=== PATIENT | female | born 1975 ===

== ENCOUNTER 2018-10-02 04:53 | Observation (INO) | payer OTHER ==
[~2018-10-02] VITALS: Ht 160 cm; Wt 104.3 kg
[2018-10-02 05:48] LABS: BASOPHILS ABSOLUTE AUTO 0.02 K/mm3 (0.00-0.23); BASOPHILS PERCENT AUTO 0 % (0-2); EOSINOPHILS ABSOLUTE AUTO 0.18 K/mm3 (0.00-0.68); EOSINOPHILS PERCENT AUTO 2 % (0-6); Hematocrit 40.1 % (33.0-51.0); Hemoglobin 13.1 g/dL (11.5-16.0); IMMATURE GRAN ABSOLUTE AUTO 0.02 K/mm3 (0.00-0.10); IMMATURE GRAN PERCENT AUTO 0 % (0-1); LYMPHOCYTES ABSOLUTE AUTO 2.87 K/mm3 (0.84-5.20); LYMPHOCYTES PERCENT AUTO 34 % (21-46); MONOCYTES ABSOLUTE AUTO 0.56 K/mm3 (0.16-1.47); MONOCYTES PERCENT AUTO 7 % (4-13); Mean Corpuscular HGB 29.8 pg (26.0-34.0); Mean Corpuscular HGB Conc 32.7 g/dL (31.5-36.5); Mean Corpuscular Volume 91 fL (80-100); Mean Platelet Volume 10.5 fL (9.1-12.4); NEUTROPHILS ABSOLUTE AUTO 4.77 K/mm3 (1.96-9.15); NEUTROPHILS PERCENT AUTO 57 % (41-73); Platelet Count 262 K/mm3 (150-400); RDW Coefficient Variation 12.8 % (11.7-14.2); RDW Standard Deviation 42.8 fL (35.1-46.3); Source, Urine Clean Catch; White Blood Cell Count 8.42 K/mm3 (4.00-11.30)
[2018-10-02 05:58] LABS: Bilirubin, Urine Neg (Neg); Blood, Urine 1+ (Neg); Glucose Qualitative, Urine Neg (Neg); Ketones, Urine 1+ (Neg); Leukocyte Esterase, Urine 1+ (Neg); Nitrite, Urine Neg (Neg); Protein, Urine 1+ (Neg); Specific Gravity, Urine 1.025 (1.003-1.022); Urobilinogen, Urine NORM (Normal)
[2018-10-02 06:07] LABS: Alanine Aminotransfer (ALT/SGP 51 U/L (12-78); Albumin, Blood 3.8 g/dL (3.4-5.0); Alk Phos 95 U/L (50-136); Anion Gap 6 mmol/L (6-16); Aspartate Aminotrans (AST/SGOT 22 U/L (12-37); Bilirubin, Total 0.3 mg/dL (0.1-1.0); Blood Urea Nitrogen 13 mg/dL (8-24); Bun/Creatinine Ratio 20.6 (12.0-20.0); CO2, Blood 26 mmol/L (21-32); Calcium, Blood 8.5 mg/dL (8.5-10.1); Chloride, Blood 108 mmol/L (98-108); Creatinine, Blood 0.63 mg/dL (0.40-1.00); Globulin, Blood 3.9 g/dL (2.2-4.0); Glomerular Filtration Rate >60 (60-); Glucose, Blood 119 mg/dL (70-99); Potassium, Blood 3.8 mmol/L (3.5-5.5); Sodium, Blood 140 mmol/L (136-145); Total Protein, Blood 7.7 g/dL (6.4-8.2)
[2018-10-02 06:18] LABS: Appearance, Urine Hazy (Clear); Color, Urine Yellow (P-Yellow)
[2018-10-02 06:20] LABS: Red Blood Cells, Urine 0-2 /hpf (0-2)
[2018-10-02 06:21] LABS: Bacteria Many /hpf; Squamous Epithelial Cells Mod /hpf (Few)
--- NOTE | 2018-10-02 09:15 | NUR ---
REPORT RECEIVED FROM FRANSISCA FOSTER IN ER.
--- NOTE | 2018-10-02 09:24 | NUR ---
PT ARRIVES TO UNIT VIA WC FROM ER. PT ALERT AND ORIENTED. INDEPENDENT IN ROOM. PT CONSENTED TO SURGERY BY DR AN IN THE ER. PT DENIES QUESTIONS CURRENTLY. PT UP TO RR. STATES PAIN 5/10. PT STATES ABD PAIN AND NAUSEA STARTED THIS AM AT 0300 AND WOKE HER. PT HAS PATENT 20G TO RIGHT AC. DENIES CURRENT NAUSEA.
--- NOTE | 2018-10-02 09:41 | NUR ---
OR STAFF TO ROOM,
--- NOTE | 2018-10-02 09:44 | NUR ---
PT TO DAYSURGERY WITH RN.
--- NOTE | 2018-10-02 09:58 | NUR ---
FROM SURGICAL FLOOR TO [facility] ADMISSION TO UNIT STARTED. Lungs clear T/O to Auscultation. History, Chart, Medications and Allergies reviewed before start of procedure.Patient confirms NPO status and agrees with scheduled surgery.
--- NOTE | 2018-10-02 14:06 | NUR ---
PT ARRIVED TO ROOM FROM PACU. DROWSY BUT ANSWERS QUESTIONS APPROPRIATELY. DENIES PAIN, NAUSEA OR SOB AT THIS TIME. GAUZE W/TEGADERM TO LAP INCISIONS TO ABDX4. VSS. CALL LIGHT IN REACH.
--- NOTE | 2018-10-02 19:13 | NUR ---
SUMMARY PT S/P LAP LELA THIS SHIFT. MEDICATED W/1 TAB NORCO PER ORDERS FOR 08/20 ABD PAIN. PT AMBULATED TO RESTROOM. TOLERATING PO INTAKE. DENIES NAUSEA OR SOB. VSS. CALL LIGHT IN REACH. PT PLEASANT AND COOPERATIVE.
--- NOTE | 2018-10-03 04:15 | NUR ---
SHIFT SUMMARY: PT POD #1 FOR LAP LELA. GAUZE SITES CDI T/O SHIFT. PAIN MANAGED WITH 5MG OXY. PT DENIES PASSING FLATUS. JAVI REG DIET. DENIES N/V. PT OOB TO BATHROOM PRN WITH SBA. VOIDING WELL. AT BEDSIDE. NO CONCERNS AT THIS TIME. CALL LIGHT IN REACH.
--- NOTE | 2018-10-03 05:25 | NUR ---
PATIENT BACK TO BED AFTER USING RESTROOM. RN NOTIFIED OF SOME BLEEDING AT SURGICAL SITE THAT PATIENT NOTICIED. CALL LIGHT IN REACH.
[2018-10-03] MEDS ORDERED: HYDR1TAB94 PO (07:34)
[2018-10-03] MEDS ORDERED: ONDA4ODT SL (07:35)
--- NOTE | 2018-10-03 11:22 | NUR ---
SHIFT SUMMARY PT A&OX4, VSS, LEFT FLOOR VIA WC WITH ESCORT TO GO HOME WITH , WITH ALL PERSONAL POSSESSIONS INCLUDING DISCHARGE PACKET AND 1 NARC AND 1 ZOFRAN SCRIPT. DISCHARGE INSTRUCTIONS PROVIDED. PT REP UNDERSTANDING THOSE INSTRUCTIONS INCLUDING FU WITH [facility] 2 WKS, PCP 1 WK, LEAVE STERIS IN PLACE 7-10, OK TO SHOWER TOMORROW, NO JACUZZI/TUB BATHS. IV DC'D.
== END 2018-10-03 10:10 | disposition home or self-care (01) ==
LOC: ER 04:53 → SURS 04:54
PROVIDERS: Emergency Medicine; ADMIT Surgery
PROC: BF13YZZ Fluoroscopy of Gallbladder and Bile Ducts using Other Contrast (ICD-10-PCS; principal; 2018-10-02 11:00)
PROC: 0FT44ZZ Resection of Gallbladder, Percutaneous Endoscopic Approach (ICD-10-PCS; principal; 2018-10-02 11:00)
DX: K80.12 Calculus of gallbladder with acute and chronic cholecystitis without obstruction (principal)
CPT/HCPCS: 36415; 74300; 76705; 80053; 81001; 81025; 83605; 83690; 85025; 87086; 88304; 96372; 96374; 99285-25; A9270-GY; C1894; G0378; J0690; J0694; J1100; J1650; J1885; J2250; J2270; J2405; J2704; J2710; J3010; J7120